=== PATIENT | female | born 1945 | race African-American/Black ===

== ENCOUNTER 2023-09-25 18:33 | Emergency (ER) | payer OTHER ==
[2023-09-25 18:42] VITALS: TEMP 97.6; BMI 35.1
[2023-09-25] MEDS ORDERED: ASPIRIN 81 MG CHEWABLE TABLETS ONE (19:32)
[2023-09-25] MEDS: ASPIRIN 81 MG CHEWABLE TABLETS PO ONE (19:54)
[2023-09-25 20:03] LABS: INR 1.08 (0.83-1.09); PROTHROMBIN TIME (PATIENT) 12.5 SEC (9.7-13.0)
[2023-09-25 20:06] LABS: ACTIVATED PTT 36.7 SECONDS (25.2-36.5); BASO % 0.9 % (0-2.0); EOS % 0.4 % (0-4.5); HEMATOCRIT 37.5 % (32.4-45.2); HEMOGLOBIN 11.9 GM/dL (10.7-15.3); LYMPH % 26.4 % (8-40); MCH 26.7 pg (25.7-33.7); MCHC 31.7 g/dl (32.0-36.0); MEAN CELL VOLUME 84.2 fl (80-96); MEAN PLT VOLUME 7.6 fl (7.5-11.1); MONO % 8.7 % (3.8-10.2); NEUT % 63.6 % (42.8-82.8); PLATELET COUNT 315 10^3/uL (134-434); RBC 4.46 M/mm3 (3.60-5.2); RDW 13.6 % (11.6-15.6); WHITE BLOOD COUNT 8.3 K/mm3 (4.0-10.0)
[2023-09-25 20:19] LABS: CALCIUM 9.7 mg/dL (8.5-10.1)
[2023-09-25 20:20] LABS: ALBUMIN 3.8 g/dl (3.4-5.0); BLOOD UREA NITROGEN 29.6 mg/dL (7-18); MAGNESIUM 1.8 mg/dL (1.8-2.4)
[2023-09-25 20:23] LABS: CREATININE 1.3 mg/dL (0.55-1.3)
[2023-09-25 20:24] LABS: BILIRUBIN,TOTAL 0.2 mg/dL (0.2-1); TOT PROT 7.6 g/dl (6.4-8.2)
[2023-09-25 22:44] VITALS: BP 157/60; PULSE 66; RESP 20
== END 2023-09-25 23:26 | disposition home or self-care (01) ==
LOC: JER 18:33
DX: M25.512 Pain in left shoulder (principal); M79.602 Pain in left arm; R07.89 Other chest pain; R01.1 Cardiac murmur, unspecified
CPT/HCPCS: 36415; 71046-TC-FY; 80053; 82550; 83735; 84484; 85025; 85610; 85730; 93005; 93010; 93971; 99285-25

== ENCOUNTER 2024-01-12 22:15 | Emergency (ER) | payer OTHER ==
[2024-01-12 22:21] VITALS: RESP 20; BMI 35.1
[2024-01-12] MEDS ORDERED: ACETAMINOPHEN INJECTION 100 ML IVPB ONE ×2 (22:59→23:01)
[2024-01-12] MEDS: ACETAMINOPHEN 1000 MG/100 ML BAG IVPB ONE ×2 (23:09)
[2024-01-12] MEDS: SODIUM CHLORIDE 0.9% 500 ML INFUS.BAG IV ONE (23:09)
[2024-01-12 23:23] LABS: BASO % 0.3 % (0-2.0); EOS % 0.2 % (0-4.5); HEMATOCRIT 36.5 % (32.4-45.2); HEMOGLOBIN 11.9 GM/dL (10.7-15.3); LYMPH % 16.3 % (8-40); MCHC 32.6 g/dl (32.0-36.0); MEAN CELL VOLUME 82.9 fl (80-96); MEAN PLT VOLUME 7.8 fl (7.5-11.1); MONO % 10.2 % (3.8-10.2); PLATELET COUNT 275 10^3/uL (134-434); RBC 4.41 M/mm3 (3.60-5.2); WHITE BLOOD COUNT 7.5 K/mm3 (4.0-10.0)
[2024-01-12 23:24] LABS: VENOUS O2 SATURATION 87.9 % (70-80); VENOUS PCO2 37.1 mmHg (38-52); VENOUS PH 7.429 (7.310-7.410)
[2024-01-12 23:30] LABS: PROTHROMBIN TIME (PATIENT) 11.3 SEC (9.7-13.0)
[2024-01-12 23:32] LABS: ACTIVATED PTT 37.4 SECONDS (25.2-36.5)
[2024-01-12 23:43] LABS: POTASSIUM 4.2 mmol/L (3.5-5.1)
[2024-01-12 23:45] LABS: BLOOD UREA NITROGEN 15.8 mg/dL (7-18); CALCIUM 9.5 mg/dL (8.5-10.1)
[2024-01-12 23:49] LABS: BILIRUBIN,TOTAL 0.4 mg/dL (0.2-1); TOT PROT 8.2 g/dl (6.4-8.2)
[2024-01-13 00:03] LABS: EPI CELLS 9 /uL (0-25.1); HYALINE CASTS 0 /uL (0-3.1); PH,URINE 6.5 (5.0-8.0); URINE APPEARANCE CLEAR; URINE BACTERIA 25 /uL (0-1359); URINE BILIRUBIN NEGATIVE (NEGATIVE); URINE COLOR YELLOW; URINE GLUCOSE (UA) NEGATIVE (NEGATIVE); URINE KETONE NEGATIVE (NEGATIVE); URINE LEUK ESTERASE TRACE (NEGATIVE); URINE NITRITE NEGATIVE (NEGATIVE); URINE PROTEIN 2+ (NEGATIVE); URINE RBC 26 /uL (0-23.9); URINE UROBILINOGEN 0.2 mg/dL (0.2-1.0); URINE WBC 24 /uL (0-25.8)
[2024-01-13 00:54] VITALS: BP 164/66; PULSE 78; TEMP 98.6
== END 2024-01-13 01:49 | disposition home or self-care (01) ==
LOC: JER 22:15
PROC: 3E033GC Introduction of Other Therapeutic Substance into Peripheral Vein, Percutaneous Approach (ICD-10-PCS; principal; 2024-01-12)
DX: U07.1 COVID-19 (principal); R05.9 Cough, unspecified; R50.9 Fever, unspecified; R07.89 Other chest pain
CPT/HCPCS: 0241U-QW; 36415; 71045-TC-FY; 80053; 81003; 82803; 83605; 84484; 85025; 85610; 85730; 86850; 86900; 86901; 87040; 87086; 87186; 93005; 93010; 99285-25; J0131